=== PATIENT | female | born 1955 | race Hispanic/Latino ===

== ENCOUNTER 2022-11-22 15:44 | Emergency (ER) | payer MEDICARE ==
[~2022-11-22] VITALS: Ht 160 cm; Wt 97.1 kg
[2022-11-22 17:00] LABS: HEMATOCRIT 40.4 % (36-48); IMMATURE GRANULOCYTE ABSOLUTE 0.02 K/uL (0-1); LYMPHOCYTES # (AUTO) 0.5 K/uL (1.0-4.8); LYMPHOCYTES % (AUTO) 7.7 % (21.0-51.0); MEAN CORPUSCULAR HGB CONC 34.4 g/dL (32.0-36.0); MEAN CORPUSCULAR VOLUME 87.3 fL (79-99); MONOCYTES # (AUTO) 0.3 K/uL (0.1-1.0); MONOCYTES % (AUTO) 4.6 % (3.0-13.0); NEUTROPHILS # (AUTO) 5.3 K/uL (1.8-7.7); NEUTROPHILS % (AUTO) 87.4 % (40.0-77.0); PLATELET COUNT (AUTO) 116 K/uL (130-400); RED BLOOD CELL COUNT(AUTO) 4.63 MIL/uL (4.00-5.50); WHITE BLOOD COUNT (AUTO) 6.1 K/uL (4.8-10.8)
[2022-11-22 17:09] LABS: CREATININE 0.7 mg/dL (0.5-1.5); POTASSIUM 3.3 mmol/L (3.5-5.1)
[2022-11-22 17:18] LABS: ALBUMIN 3.7 g/dL (3.5-5.0); TOTAL PROTEIN, SERUM 7.8 g/dL (6.0-8.3)
[2022-11-22] MEDS ORDERED: MAG/ALUM/SIMETH 30 ML UDCUP PO SCH (19:00)
[2022-11-22] MEDS ORDERED: LIDOCAINE HCL 2% VISCOUS 15 ML UDCUP PO SCH (19:00)
[2022-11-22 19:15] LABS: APPEARANCE,URINE CLEAR (CLEAR); BILIRUBIN,URINE NEGATIVE (NEGATIVE); COLOR,URINE YELLOW (YELLOW); GLUCOSE, URINE (UA) NEGATIVE (NEGATIVE); KETONES,URINE NEGATIVE (NEGATIVE); LEUKOCYTE ESTERASE ,URINE 25 Leu/uL (NEGATIVE); NITRATE,URINE NEGATIVE (NEGATIVE); OCCULT BLOOD,URINE NEGATIVE (NEGATIVE); PROTEIN,URINE 20 mg/dL (NEGATIVE); UROBILINOGEN,URINE 0.2 mg/dL (0.2-1.0)
[2022-11-22 19:19] LABS: ADD UA MICROSCOPIC YES
[2022-11-22 19:28] LABS: BACTERIA,URINE RARE /HPF (None Seen); MUCUS,URINE FEW LPF (None Seen); SQUAMOUS EPITHELIAL CELL,UR FEW /HPF (0-2)
[2022-11-22] MEDS ORDERED: FAMO20TA8 PO (20:11)
[2022-11-22 20:23] VITALS: BP 165/77; PULSE 76; RESP 16; O2SAT 98
== END 2022-11-22 21:18 | disposition home or self-care (01) ==
LOC: EDH 15:44
DX: K80.20 Calculus of gallbladder without cholecystitis without obstruction (principal); Z88.0 Allergy status to penicillin; Z90.710 Acquired absence of both cervix and uterus
CPT/HCPCS: 36415; 71045; 76705; 80053; 81001; 83690; 84484; 85025; 93005

== ENCOUNTER 2023-02-07 06:22 | Day surgery (SDC) | payer MEDICARE ==
[2023-02-04 09:31] LABS: EOSINOPHILS # (AUTO) 0.01 K/uL (0.00-0.70); EOSINOPHILS % (AUTO) 0.2 % (0.0-8.0); HEMATOCRIT 38.9 % (36-48); IMMATURE GRANULOCYTE ABSOLUTE 0.02 K/uL (0-1); LYMPHOCYTES # (AUTO) 1.5 K/uL (1.0-4.8); LYMPHOCYTES % (AUTO) 33.5 % (21.0-51.0); MEAN CORPUSCULAR HEMOGLOBIN 30.4 pg (27.0-33.0); MEAN CORPUSCULAR HGB CONC 32.9 g/dL (32.0-36.0); MEAN CORPUSCULAR VOLUME 92.4 fL (79-99); MONOCYTES # (AUTO) 0.4 K/uL (0.1-1.0); MONOCYTES % (AUTO) 8.1 % (3.0-13.0); NEUTROPHILS # (AUTO) 2.6 K/uL (1.8-7.7); NEUTROPHILS % (AUTO) 57.8 % (40.0-77.0); PLATELET COUNT (AUTO) 105 K/uL (130-400); RED BLOOD CELL COUNT(AUTO) 4.21 MIL/uL (4.00-5.50); RED CELL DISTRIBUTION WIDTH 13.2 % (11.0-15.5); WHITE BLOOD COUNT (AUTO) 4.6 K/uL (4.8-10.8)
[2023-02-04 09:41] LABS: CREATININE 0.7 mg/dL (0.5-1.5); POTASSIUM 3.7 mmol/L (3.5-5.1)
[2023-02-04 09:55] VITALS: BP 162/75; PULSE 73; RESP 16
[2023-02-07] VITALS (17 sets, daily range): BP systolic 118–160; BP diastolic 51–83; PULSE 68–87; RESP 13–16
[~2023-02-07] VITALS: Ht 172.7 cm; Wt 91.7 kg
[~2023-02-07 06:22] MED LIST: ASCO100031 PO; CALC-987 PO; CRAN500T4 PO; GARL1000 PO; MULT-1367 PO; SOLI5TAB6 PO; [UNRECOGNIZED DRUG - CODE] PO
[2023-02-07] MEDS ORDERED: DEXMEDETOMIDINE HCL 200 MCG/2 ML VIAL IV ONE (06:49)
[2023-02-07] MEDS ORDERED: LACTATED RINGERS 1000ML 1,000 ML IV ONE (06:52)
[2023-02-07] MEDS ORDERED: CLINDAMYCIN IVPB 900MG/50ML 50 ML IV ONE (06:53)
[2023-02-07] MEDS ORDERED: NEOSTIGMINE 5MG/5ML SYR IV ONE (07:39)
[2023-02-07] MEDS ORDERED: PROPOFOL 10 MG/ML 20ML VIAL IV ONE (07:39)
[2023-02-07] MEDS ORDERED: ONDANSETRON 4MG INJ ONE ×3 (07:39→09:30)
[2023-02-07] MEDS ORDERED: GLYCOPYRROLATE 1 MG/5 ML SYRINGE ONE (07:39)
[2023-02-07] MEDS ORDERED: LIDOCAINE PF 100MG/5ML (2%) SYRINGE 5ML ONE (07:39)
[2023-02-07] MEDS ORDERED: SUCCINYLCHOLINE 200MG/10ML SYR ONE (07:39)
[2023-02-07] MEDS ORDERED: DEXAMETHASONE SOD PHOSPHATE 10MG/ML 1ML VIAL ONE (07:39)
[2023-02-07] MEDS ORDERED: MIDAZOLAM HCL 1 MG/ML 2ML VIAL ONE (07:39)
[2023-02-07] MEDS ORDERED: ROCURONIUM 10MG/1ML SYR 10 MG/ML ML ONE (07:40)
[2023-02-07] MEDS ORDERED: FENTANYL CITRATE PF 50 MCG/1 ML 2ML VIAL ONE ×2 (07:40→08:18)
[2023-02-07] MEDS ORDERED: BUPIVACAINE/PF 0.25% 30ML VIAL IJ ONE (07:51)
[2023-02-07] MEDS ORDERED: LIDOCAINE HCL/EPINEPHRINE 50 ML VIAL IJ ONE (07:52)
[2023-02-07] MEDS ORDERED: MEPERIDINE-PF 25 MG/ML SYG ONE (09:21)
[2023-02-07] MEDS ORDERED: METOCLOPRAMIDE 10 MG/2 ML VIAL ONE (09:42)
== END 2023-02-07 10:45 | disposition home or self-care (01) ==
LOC: DAH 06:22
PROVIDERS: ATTEND Surgery
DX: K80.10 Calculus of gallbladder with chronic cholecystitis without obstruction (principal); K82.8 Other specified diseases of gallbladder; E66.9 Obesity, unspecified; Z88.0 Allergy status to penicillin; Z90.710 Acquired absence of both cervix and uterus; Z98.890 Other specified postprocedural states; Z82.49 Family history of ischemic heart disease and other diseases of the circulatory system; Z83.3 Family history of diabetes mellitus; Z68.35 Body mass index [BMI] 35.0-35.9, adult
CPT/HCPCS: 80048; 85025; 36415; 47562; 88304; A4663; J7030; A4452; J7120; J3010 ×2; J0330; J3490 ×3; J1100; J2710; J0665; J2001; J2250; J2704; J2405 ×3; J2175; J2765; C1769; A4649; A4215; A4223; A4222; A4221

== ENCOUNTER 2023-05-04 05:36 | Day surgery (SDC) | payer MEDICARE ==
[~2023-05-04] VITALS: Ht 157.5 cm; Wt 92.5 kg
[2023-05-04] VITALS (11 sets, daily range): BP systolic 123–144; BP diastolic 49–72; PULSE 67–75; RESP 15–18
[~2023-05-04 05:36] MED LIST changes: -CRAN500T4 PO; -GARL1000 PO; -SOLI5TAB6 PO; +VITAMIN B12 PO; -[UNRECOGNIZED DRUG - CODE] PO
[2023-05-04] MEDS ORDERED: 0.9%NACL 1000ML 1,000 ML IV ONE (06:04)
[2023-05-04] MEDS ORDERED: PROPOFOL 10 MG/ML 20ML VIAL IV ONE ×5 (07:18→08:38)
[2023-05-04] MEDS ORDERED: LIDOCAINE HCL 1% 20 ML VIAL ONE (07:19)
== END 2023-05-04 10:00 | disposition home or self-care (01) ==
LOC: DAH 05:36 → ENDO 05:36
PROVIDERS: ATTEND Internal Medicine Gastroenterology
DX: Z12.11 Encounter for screening for malignant neoplasm of colon (principal); K57.30 Diverticulosis of large intestine without perforation or abscess without bleeding; K62.1 Rectal polyp; D12.5 Benign neoplasm of sigmoid colon; D12.0 Benign neoplasm of cecum; D12.3 Benign neoplasm of transverse colon; D12.2 Benign neoplasm of ascending colon; M19.90 Unspecified osteoarthritis, unspecified site; Z88.0 Allergy status to penicillin; Z90.710 Acquired absence of both cervix and uterus; Z90.49 Acquired absence of other specified parts of digestive tract
CPT/HCPCS: 45381; 45385; J7030 ×2; J2704 ×5; A4620; A4649; A4215 ×2; A4223; A7002; A4222; A4221; A4663; A4606; J3490

== ENCOUNTER 2023-11-23 05:52 | Day surgery (SDC) | payer MEDICARE ==
[~2023-11-23] VITALS: Ht 172.7 cm; Wt 98.0 kg
[2023-11-23] VITALS (11 sets, daily range): BP systolic 103–153; BP diastolic 50–84; PULSE 65–75; RESP 14–18
[2023-11-23] MEDS: 0.9%NACL 1000ML 1,000 ML IV ONE (06:29)
[2023-11-23] MEDS ORDERED: PROPOFOL 10 MG/ML 20ML VIAL IV ONE (06:55)
[2023-11-23] MEDS ORDERED: LIDOCAINE HCL 400MG/20ML VIAL ONE (06:56)
== END 2023-11-23 08:35 | disposition home or self-care (01) ==
LOC: ENDO 05:52 → DAH 05:52 → ENDO 08:35
PROVIDERS: ATTEND Internal Medicine Gastroenterology
DX: K59.00 Constipation, unspecified (principal); D12.0 Benign neoplasm of cecum; D12.2 Benign neoplasm of ascending colon; D12.3 Benign neoplasm of transverse colon; K57.30 Diverticulosis of large intestine without perforation or abscess without bleeding; M19.90 Unspecified osteoarthritis, unspecified site; Z90.710 Acquired absence of both cervix and uterus; Z88.0 Allergy status to penicillin; Z90.49 Acquired absence of other specified parts of digestive tract; Z79.899 Other long term (current) drug therapy
CPT/HCPCS: 45385; 45380; J3490; J7030; J2704; A4620; A4215 ×2; A4223; A4222; A4221; A4663; A4606

== ENCOUNTER 2024-01-02 14:56 | Emergency (ER) | payer MEDICARE ==
[~2024-01-02] VITALS: Ht 162.6 cm; Wt 96.6 kg
[2024-01-02] MEDS ORDERED: ONDA-243 PO (16:18)
[2024-01-02] MEDS ORDERED: METR375C2 PO (16:18)
[2024-01-02] MEDS ORDERED: FAMO-136 PO (16:18)
[2024-01-02] MEDS: ONDANSETRON 4MG TABLET PO ONE (17:03)
[2024-01-02 17:05] VITALS: BP 140/80; PULSE 80; RESP 16; TEMP 98.3; O2SAT 98
== END 2024-01-02 17:21 | disposition home or self-care (01) ==
LOC: EDH 14:56
DX: K52.9 Noninfective gastroenteritis and colitis, unspecified (principal); E11.9 Type 2 diabetes mellitus without complications; I10 Essential (primary) hypertension; Z79.899 Other long term (current) drug therapy; Z88.0 Allergy status to penicillin; Z88.6 Allergy status to analgesic agent; Z90.710 Acquired absence of both cervix and uterus
CPT/HCPCS: 99283; Q0162

== ENCOUNTER 2025-03-05 22:04 | Emergency (ER) | payer MEDICARE, MEDICAID ==
[~2025-03-05] VITALS: Ht 172.7 cm; Wt 100.7 kg
[~2025-03-05 22:04] MED LIST changes: -ASCO100031 PO; +ASCO10004 PO; +FAMO-136 PO; +METR375C2 PO; +ONDA-243 PO
[2025-03-05 22:05] VITALS: BP 154/55; PULSE 68; RESP 20; TEMP 96.5
[2025-03-05] MEDS: 0.9%NACL 1000ML 1,000 ML IV ONE (23:28)
[2025-03-05 23:39] LABS: IMMATURE GRANULOCYTE ABSOLUTE 0.01 K/uL (0-1); NUCLEATED RED BLOOD CELLS 0.0 % (0.0-0.19); PLATELET COUNT (AUTO) 120 K/uL (130-400); RED BLOOD CELL COUNT(AUTO) 4.41 MIL/uL (4.00-5.50); RED CELL DISTRIBUTION WIDTH 12.9 % (11.0-15.5); WHITE BLOOD COUNT (AUTO) 7.2 K/uL (4.8-10.8)
[2025-03-05 23:48] LABS: CREATININE 0.6 mg/dL (0.5-1.0); GLOMERULAR FILTR. RATE CALC 98.0 mL/min (>90); GLUCOSE,RANDOM 116.0 mg/dL (70-105); SODIUM SERUM 137.0 mmol/L (136-145); UREA NITROGEN, BLOOD 24.0 mg/dL (7-18)
[2025-03-05 23:53] LABS: ASPARTATE AMINOTRANSFERASE 27.0 U/L (10-37); CREATINE KINASE, TOTAL 159.0 U/L (21-232); TOTAL PROTEIN, SERUM 8.0 g/dL (6.0-8.3)
--- NOTE | 2025-03-05 23:54 | ERN ---
ED Note History of Present Illness Stated Complaint: C/O ABD PAIN WITH NAUSEA AND DIZZINESS Chief Complaint: Abdominal Pain Time Seen by MD: 22:07 Dictation: 69-year-old female presents to ER complaints of headache, dizziness, nausea and abdominal pain all symptoms started approximately 3 hours ago while at home. Patient denies vomiting or diarrhea. Allergies: Coded Allergies: Penicillins (Unverified Allergy, Unknown, 11/22/22) aspirin (Unverified Allergy, Unknown, 05/02/23) Home Meds Active Scripts Ondansetron (Ondansetron Odt) 4 Mg Tab.rapdis, 4 MG PO Q4HPRN PRN for NAUSEA, #20 TAB Prov:KIM BATISTA [employer]NAGER 03/06/25 Famotidine (Pepcid) 20 Mg Tablet, 20 MG PO BID for 7 Days, #14 TAB Prov:ARMAAN CEJA 01/02/24 Ondansetron (Ondansetron Odt) 4 Mg Tab.rapdis, 4 MG PO BID for 7 Days, #14 TAB Prov:ARMAAN CEJA 01/02/24 Metronidazole (Flagyl) 375 Mg Capsule, 375 MG PO BID for 7 Days, #14 CAP Prov:ARMAAN CEJA 01/02/24 Reported Medications [Vitamin B12] No Conflict Check, 2000 MCG PO DAILY 05/02/23 Multivitamin (Multivitamin) 1 Each Tablet, 1 EACH PO DAILY, TAB 02/04/23 Calcium Carbonate/Vitamin D3 (Calcium 600 + Vit D3 Tablet) 600 Mg Calcium-10 Mcg (400 Unit) Tablet, 1 EACH PO DAILY, TAB 02/04/23 Ascorbic Acid (Vitamin C) 1,000 Mg Tablet, 1000 MG PO DAILY, TAB 02/04/23 Past Medical History Past Medical History: Diabetes-Type II, Hypertension Additional Past Medical Hx: URINARY URGENCY Surgical History: Cholecystectomy Review of System Dictation CONSTITUTIONAL: NEGATIVE FOR FEVER,CHILLS, AND WEIGHT LOSS EYES: NEGATIVE FOR INJURY, PAIN,REDNESS, AND DISCHARGE ENT: NEGATIVE FOR INJURY,PAIN OR SWELLING CARDIOVASCULAR: NEGATIVE FOR CHEST PAIN, PALPITATIONS, AND EDEMA RESPIRATORY: NEGATIVE FOR SHORTNESS OF BREATH, COUGH, WHEEZING, AND PLEURITIC CHEST PAIN ABDOMEN/GI: NEGATIVE FOR VOMITING AND DIARRHEA. Positive for abdominal pain and nausea BACK: NEGATIVE FOR PAIN OR INJURY : NEGATIVE FOR INJURY, BLEEDING AND DISCHARGE MS/EXTREMITY: NEGATIVE FOR INJURY AND DEFORMITY SKIN: NEGATIVE FOR RASH, AND DISCOLORATION NEURO: NEGATIVE FOR NUMBNESS, TINGLING, AND SEIZURE. Positive for headache and dizziness PSYCH: NEGATIVE FOR SUICIDE IDEATION, HOMICIDAL IDEATION, AND HALLUCINATIONS ALLERGY/IMMUNOLOGY: NEGATIVE FOR HIVES, RASH, AND ALLERGIES ALL SYSTEMS NEGATIVE, EXCEPT NOTED ABOVE. 13 POINT REVIEW OF SYSTEMS ASSESSED AND ALL NEGATIVE EXCEPT FOR ABOVE. Initial Vital Sign VS Vital Signs Date Time Temp Pulse Resp B/P (MAP) Pulse Ox O2 Delivery O2 Flow Rate FiO2 03/05/25 22:05 96.4 68 20 154/55 98 Room Air Physical Exam Dictation General: awake, alert, NAD Head/Face: Normocephalic, atraumatic Eyes: PERRL, EOMI, vision at baseline ENT: oral cavity clear, TMs clear, no signs of infection Neck: Trachea midline, supple, no nuchal rigidity Cardiovascular: RRR, normal no JVD Respiratory: CTAB, no respiratory distress, No rales or wheezes Abdomen: Soft, non-tender, non-distended, normal bowel sounds, generalized abdominal pain upon palpation to all quads Skin: Warm, dry, normal turgor, no rash MS/Extremity: Pulses equal, no cyanosis, neurovascular intact, FROM Neuro: COAx4, GCS 15, strength 5/5, CN 2-12 intact, normal cerebellar exam, normal gait, Psych: Normal behavior, mood, and affect normal Results (Laboratory/Radiology) Laboratory/Radiology Laboratory Tests Test 03/05/25 23:29 03/06/25 00:35 White Blood Count 7.2 K/uL (4.8-10.8) Red Blood Count 4.41 MIL/uL (4.00-5.50) Hemoglobin 13.6 g/dL (12.0-16.0) Hematocrit 40.5 % (36-48) Mean Corpuscular Volume 91.8 fL (79-99) Mean Corpuscular Hemoglobin 30.8 pg (27.0-33.0) Mean Corpuscular Hemoglobin Concent 33.6 g/dL (32.0-36.0) Red Cell Distribution Width 12.9 % (11.0-15.5) Platelet Count 120 K/uL (130-400) L Mean Platelet Volume 13.4 fL (7.5-10.5) H Immature Granulocyte % (Auto) 0.1 % (0-1) Neutrophils (%) (Auto) 73.6 % (40.0-77.0) Lymphocytes (%) (Auto) 19.4 % (21.0-51.0) L Monocytes (%) (Auto) 6.6 % (3.0-13.0) Eosinophils (%) (Auto) 0.3 % (0.0-8.0) Basophils (%) (Auto) 0.0 % (0.0-5.0) Neutrophils # (Auto) 5.3 K/uL (1.8-7.7) Lymphocytes # (Auto) 1.4 K/uL (1.0-4.8) Monocytes # (Auto) 0.5 K/uL (0.1-1.0) Eosinophils # (Auto) 0.02 K/uL (0.00-0.70) Basophils # (Auto) 0.00 K/uL (0.00-0.20) Absolute Immature Granulocyte (auto 0.01 K/uL (0-1) Nucleated Red Blood Cells 0.0 % (0.0-0.19) Sodium Level 137 mmol/L (136-145) Potassium Level 4.3 mmol/L (3.5-5.1) Chloride Level 101 mmol/L (101-111) Carbon Dioxide Level 30 mmol/L (21-32) Blood Urea Nitrogen 24 mg/dL (7-18) H Creatinine 0.6 mg/dL (0.5-1.0) Glomerular Filtration Rate Calc 98 mL/min (>90) Random Glucose 116 mg/dL (70-105) H Total Calcium 9.2 mg/dL (8.5-10.1) Total Bilirubin 0.7 mg/dL (0.2-1.0) Aspartate Amino Transf (AST/SGOT) 27 U/L (10-37) Alanine Aminotransferase (ALT/SGPT) 25 U/L (12-78) Alkaline Phosphatase 104 U/L (50-136) Total Creatine Kinase 159 U/L (21-232) Troponin I High Sensitivity 5.0 ng/L (4-50) Total Protein 8.0 g/dL (6.0-8.3) Albumin 3.8 g/dL (3.5-5.0) Amylase Level 60 U/L (25-115) Lipase 44 U/L (16-77) Urine Color COLORLESS (YELLOW) Urine Appearance CLEAR (CLEAR) Urine pH 6.5 (5.0-8.0) Urine Specific [place] 1.003 (1.001-1.031) Urine Protein NEGATIVE mg/dL (NEGATIVE) Urine Glucose (UA) NEGATIVE mg/dL (NEGATIVE) Urine Ketones NEGATIVE mg/dL (NEGATIVE) Urine Occult Blood +- (TRACE) (NEGATIVE) H Urine Nitrate NEGATIVE (NEGATIVE) Urine Bilirubin NEGATIVE mg/dL (NEGATIVE) Urine Urobilinogen 0.2 mg/dL (0.2-1.0) Urine Leukocyte Esterase NEGATIVE Amparo/uL Urine RBC 0-1 /HPF (0-1) Urine WBC 2-5 /HPF (0-1) H Urine Squamous Epithelial Cells RARE /HPF (0-2) Urine Bacteria RARE /HPF (None Seen) ED Course ED Course Orders Procedure Category Date Status Time Cbc With Differential LAB 03/05/25 Complete 22:36 Comprehensive LAB 03/05/25 Complete Metabolic Panel 22:36 Lipase LAB 03/05/25 Complete 22:36 Urinalysis Profile LAB 03/05/25 Complete 22:36 0.9%Nacl 1000ml (Ns PHA 03/05/25 Complete 1000ml) 23:30 Ondansetron 4mg Inj PHA 03/05/25 Complete (Zofran 4mg Inj) 23:30 12 Lead Ekg Tracing- EKG 03/05/25 Logged Technical 23:02 Amylase LAB 03/05/25 Complete 22:36 Cardiac Panel LAB 03/05/25 Complete 22:36 Ondansetron 4mg Inj PHA 03/06/25 Complete (Zofran 4mg Inj) 01:00 Current Medications Medications (Trade) Dose Ordered Sig/Kemal Route PRN Reason Start Time Stop Time Status Last Admin Dose Admin Ondansetron HCl (zoFRAN 4MG INJ) 4 mg ONCE ONCE IVP 03/05/25 23:30 03/05/25 23:31 DC 03/05/25 23:27 Ondansetron HCl (zoFRAN 4MG INJ) 4 mg ONCE ONCE IVP 03/06/25 01:00 03/06/25 01:01 DC 03/06/25 00:56 Sodium Chloride 1,000 ml @ 0 mls/hr ONCE ONCE IV 03/05/25 23:30 03/05/25 23:31 DC 03/05/25 23:28 Vital Signs Date Time Temp Pulse Resp B/P (MAP) Pulse Ox O2 Delivery O2 Flow Rate FiO2 03/05/25 22:05 96.4 68 20 154/55 98 Room Air Medical Decision Making MDM MDM: Differential diagnosis: Gastroenteritis, headache, dizziness, Rationale: Tests considered and ordered secondary to shared decision making include: labs, ECG and radiology Previous outside records reviewed: Old ER visits. Risk of complication and/or morbidity or mortality of patient management: None Medications-Per medication reconciliation Need for hospitalization: Patient does NOT meet criteria for hospitalization. Need for emergency major/minor surgery: No There are no social concerns with this patient. Prescription drug management Prescriptions will include symptomatic care Patient's prior external medical records from other ER visits were reviewed by me as indicated. Prior testing and results from previous visits were reviewed. Prior tests were taken into account with medical decision making and resource utilization, independent historian/historians were used to obtain complete med [facility] history. I independently interpreted the test that were performed, results were reviewed by me and considered findings on radiology if ordered. PATIENT'S SYMPTOMS IMPROVED WITH MEDICATION IN ER. LABORATORY UNREMARKABLE. PATIENT ADVISED TO FOLLOW UP WITH PCP. PATIENT ADVISED TO KEEP SONOGRAM ORDERED BY PCP FOR THAT MICROSCOPIC BLOOD NOTED IN URINE THAT HER PCP IS ALREADY AWARE OF. DX & DISP Disposition: Discharge Departure Impression: Primary Impression: Abdominal pain Additional Impressions: Nausea, Dizziness Condition: Stable Scripts Ondansetron (Ondansetron Odt) 4 Mg Tab.rapdis 4 MG PO Q4HPRN PRN for NAUSEA, #20 TAB Prov: KIM BATISTA 03/06/25 Additional Instructions: LABS NORMAL TODAY. FOLLOW-UP WITH YOUR PCP IN 24-72 HOURS AND IN THE EVENT IF SYMPTOMS WORSEN OR AN EMERGENCY OVERNIGHT REPORT TO THE ED IMMEDIATELY Referrals: JERRELL PUENTES (PCP) KIM BATISTA Mar 05, 2025 23:53
[2025-03-06 00:42] LABS: APPEARANCE,URINE CLEAR (CLEAR); GLUCOSE, URINE (UA) NEGATIVE (NEGATIVE); LEUKOCYTE ESTERASE ,URINE NEGATIVE Leu/uL (NEGATIVE); NITRATE,URINE NEGATIVE (NEGATIVE); OCCULT BLOOD,URINE +- (TRACE) (NEGATIVE)
[2025-03-06 00:44] LABS: ADD UA MICROSCOPIC YES
[2025-03-06 00:45] LABS: SQUAMOUS EPITHELIAL CELL,UR RARE /HPF (0-2)
[2025-03-06] MEDS ORDERED: ONDA-243 PO (01:30)
--- NOTE | 2025-03-06 06:54 | EKG ---
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
== END 2025-03-06 01:36 | disposition home or self-care (01) ==
LOC: EDH 22:04
DX: R10.84 Generalized abdominal pain (principal); R42 Dizziness and giddiness; R11.0 Nausea; E11.9 Type 2 diabetes mellitus without complications; I10 Essential (primary) hypertension; Z88.0 Allergy status to penicillin; Z88.6 Allergy status to analgesic agent; Z90.49 Acquired absence of other specified parts of digestive tract
CPT/HCPCS: 99284; 96374; 82150; 82550; 84484; 80053; 83690; 85025; 81001; 36415; 93005; 96376; J7030; J2405 ×2